=== PATIENT | female | born 1955 | race Caucasian/White ===

== ENCOUNTER → 2017-02-12 | Day surgery (SDC) | payer OTHER ==
--- NOTE | 2017-02-09 09:42 | Diagnostic Imaging Report ---
PROCEDURE: X-RAY CHEST, TWO VIEWS COMPARISON: None. INDICATIONS: PREOPERATIVE CHEST XRAY FOR LEFT FOOT SURGERY FINDINGS: Lungs are well-inflated. No focal airspace consolidation, pleural effusion, or pneumothorax. Calcified granuloma in the right lung apex. Cardiomediastinal contour and pulmonary vasculature are within normal limits. No acute osseous abnormality. Cervical spine fusion hardware is partially visualized. CONCLUSION: No acute cardiopulmonary abnormality. Dictated by: Franck Naylor M.D. on 02/09/2017 at 9:50 Electronically approved by: Franck Naylor M.D. on 02/09/2017 at 9:50
[~2017-02-12] MED LIST: BUPIVACAINE HCL 0.5% 10ML MPF VIAL INJ ONE; CEFAZOLIN SOD 2 GM/D5W 50ML 50 ML IV ONE; DEXAMETHASONE SOD PHOS INJ 4 MG/ML VIAL ONE; ESTROG SQ; FENTANYL CITRATE/PF 100MCG/2 ML INJ ONE; KETOROLAC TROMETHAMINE 30 MG/ML VIAL ONE; LIDOCAINE HCL 2% LOCAL INJ 5 ML SDV VIAL INJ ONE; MIDAZOLAM HCL 2 MG/2 ML VIAL ONE; NEOMYCIN/POLYMYX/BACITR OINT 0.9 GM PKT ONE; ONDANSETRON HCL INJ 2 MG/ML VIAL ONE; PROGESTERONE100 MG PO; PROPOFOL IV EMULSION 10 MG/ML 20 ML VIAL ONE; SEVOFLURANE INHAL SOLN 250 ML PEN BTL ONE; SYNTHROID100 MCG PO; TESTOST SQ
--- NOTE | 2017-02-13 01:24 | Operative Report ---
DATE OF PROCEDURE: February 12, 2017 PREOPERATIVE DIAGNOSES 1. Painful hardware, left foot. 2. 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 3. Contracture of the joint. POSTOPERATIVE DIAGNOSES 1. Painful hardware, left foot. 2. 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 3. Contracture of the joint. TITLE OF OPERATIONS 1. Removal of hardware, left foot. 2. A modified Lopez bunionectomy of the left foot with excision of fibular sesamoid and release of contracture. ANESTHESIA: General endotracheal. HEMOSTASIS: A left thigh tourniquet at 350 mmHg. PROCEDURE IN DETAIL: The patient was taken to the operating in a mildly sedated state, and placed on the operating room table in the supine position. Following induction of general anesthetic, the left lower extremity is elevated to 60 degrees to exsanguinate before inflating the pneumatic thigh tourniquet to 350 mmHg for good hemostasis. The left lower extremity was placed upon the operating table prior to performing the following procedure. PROCEDURE #1: Removal of hardware, left foot. An approximately 6 cm dorsal linear incision was made across the dorsomedial aspect of the 1st metatarsophalangeal joint of the left foot. The incision was deepened via sharp and blunt dissection at the level of the dorsal capsular structure. Care was taken to identify and retract all vital structures encountered. The head of the 1st metatarsal was delivered into the surgical site, and 2 metallic bone screws were excised. The bone itself was remodeled with oscillating saw and rotary bur. The arthritic fibular sesamoid was noted present within the 1st intermetatarsal space and associated contractures were noted. The dissection of the interspace to reveal the sesamoid showed that even after release it was still in a contracted position and arthritic. Decision was made to excise the fibular sesamoid. This was done. The area was irrigated with copious amounts of sterile saline solution. Deep closure was 3-0 Vicryl and subcutaneous closure 4-0 nylon, and skin closure with 4-0 nylon. The areas of surgery were then blocked with 0.5% Marcaine and Decadron [place]. Human tissue allograft was injected for postoperative healing enhancement. The release of the pneumatic thigh tourniquet showed a normal hyperemic flush to all digits of the left foot. The patient left the operating room with vital signs stable and in apparent satisfactory condition, having tolerated both anesthetic and procedure very well. Job#: [id number] POWER
== END | disposition home or self-care (01) ==
LOC: OR 06:42
PROVIDERS: ATTEND Podiatrist Foot Surgery
DX: T84.84XA Pain due to internal orthopedic prosthetic devices, implants and grafts, initial encounter (principal); M20.12 Hallux valgus (acquired), left foot; M13.872 Other specified arthritis, left ankle and foot; M24.575 Contracture, left foot; F17.210 Nicotine dependence, cigarettes, uncomplicated; Y83.8 Other surgical procedures as the cause of abnormal reaction of the patient, or of later complication, without mention of misadventure at the time of the procedure; Z01.810 Encounter for preprocedural cardiovascular examination; Z01.818 Encounter for other preprocedural examination
CPT/HCPCS: 28292; 28315; 71020; 76000; 88305; 88311; 93005; C1762; J1100; J1885; J2001; J2250; J2405; 88304